=== PATIENT | male | born 1985 | race Caucasian/White ===

== ENCOUNTER → 2020-11-01 14:36 | Outpatient (CLI) | payer BC, SELFPAY ==
[2020-11-01 16:26] LABS: TSH w/ Reflex to FT4 5.41 uIU/mL (0.47-4.68)
== END ==
PROVIDERS: Referring Provider Family Medicine; Visit Provider Family Medicine
DX: E03.8 Other specified hypothyroidism (principal)
CPT/HCPCS: 36415; 84439; 84443

== ENCOUNTER → 2020-12-23 17:12 | Outpatient (CLI) | payer BC, SELFPAY ==
[2020-12-23 19:09] LABS: Thyroid Stimulating Hormone 2.77 uIU/mL (0.47-4.68)
== END ==
PROVIDERS: PCP Family Medicine; Referring Provider Family Medicine; Visit Provider Family Medicine
DX: E03.9 Hypothyroidism, unspecified (principal)
CPT/HCPCS: 36415; 84443

== ENCOUNTER → 2021-08-15 09:28 | Outpatient (CLI) | payer BC, SELFPAY ==
[2021-08-15 10:49] LABS: COVID19 -Nasal RAPID Negative (Negative)
== END ==
PROVIDERS: PCP Family Medicine; Visit Provider Family Medicine
DX: J02.9 Acute pharyngitis, unspecified (principal); R09.81 Nasal congestion
CPT/HCPCS: 87635